=== PATIENT | male | born 1970 | race Caucasian/White ===

== ENCOUNTER 2018-08-20 13:10 | Emergency (ER) | payer OTHER ==
[~2018-08-20] VITALS: Ht 177.8 cm; Wt 81.7 kg
[~2018-08-20 13:10] MED LIST: ACYCLOVIR 800800 MG PO; APAP500; AZITHROMYCIN 2250 MG PO; BACTRIM DS TAB1 EACH PO; DOXYCYCLINE 10100 MG PO; FLEXERIL PO; HYDROCODONE-IB1 EACH PO; METHADOSE40 MG PO; NAPROSYN500 MG PO; NOHOMEMEDICATIONS; NORCO 5-325 TA1 EACH PO; OMEGA-31000 M1 PO; PERCOCET 5-3251 EACH PO; PERCOCET 7.5-51 EACH PO; PHENERGAN 25 MG25 M1 PO; PHENERGAN-CODE120 ML PO; PREDNISONE50 MG PO; XANAX 1 MG TABLE1 MG PO; XANAX XR2 MG PO; ZANTAC 150MG T150 MG PO; ZOFRAN ODT4 MG PO
[2018-08-20] MEDS ORDERED: VENTOLIN HFA 1818 GM INH (15:24)
[2018-08-20] MEDS ORDERED: TESSALON PERLE100 MG PO (15:24)
[2018-08-20] MEDS ORDERED: FLONASE 0.05%50 MCG NASAL (15:24)
[2018-08-20] MEDS ORDERED: ZPAK PO (15:24)
[2018-08-20] MEDS ORDERED: SUDOGEST30 MG PO (15:24)
[2018-08-20 15:30] VITALS: BP 124/72
== END 2018-08-20 15:30 | disposition home or self-care (01) ==
LOC: ER 13:10
DX: J18.9 Pneumonia, unspecified organism (principal); J06.9 Acute upper respiratory infection, unspecified; Z88.6 Allergy status to analgesic agent; Z88.8 Allergy status to other drugs, medicaments and biological substances

== ENCOUNTER 2019-04-28 18:22 | Emergency (ER) | payer OTHER ==
[~2019-04-28] VITALS: Ht 177.8 cm; Wt 83.5 kg
[~2019-04-28 18:22] MED LIST changes: +FLONASE 0.05%50 MCG NASAL; +SUDOGEST30 MG PO; +TESSALON PERLE100 MG PO; +VENTOLIN HFA 1818 GM INH; +ZPAK PO
[2019-04-28 19:11] VITALS: BP 121/76
== END 2019-04-28 19:05 | disposition home or self-care (01) ==
LOC: ER 18:22
DX: T16.2XXA Foreign body in left ear, initial encounter (principal); Z88.6 Allergy status to analgesic agent; Z88.8 Allergy status to other drugs, medicaments and biological substances; X58.XXXA Exposure to other specified factors, initial encounter; Y93.89 Activity, other specified; Y92.89 Other specified places as the place of occurrence of the external cause; Y99.8 Other external cause status